=== PATIENT | male | born 1975 | race Caucasian/White ===

== ENCOUNTER 2017-10-06 22:19 | Emergency (ER) | payer OTHER ==
[~2017-10-06] VITALS: Ht 177.8 cm; Wt 100.0 kg
[~2017-10-06 22:19] MED LIST: ALPR0.5T PO; PARO10TA76 PO
[2017-10-06 22:26] VITALS: Ht 177.8 cm; Wt 100.0 kg
== END 2017-10-07 01:11 | disposition left against medical advice (07) ==
LOC: E/R 22:19
DX: Z53.21 Procedure and treatment not carried out due to patient leaving prior to being seen by health care provider (principal)